=== PATIENT | female | born 1995 | race African-American/Black ===

== ENCOUNTER 2023-07-03 13:37 | Emergency (ER) | payer OTHER ==
[2023-07-03 13:48] VITALS: BP 155/90; PULSE 77; RESP 18; TEMP 98; BMI 25.7
[2023-07-03] MEDS ORDERED: IBUPROFEN 400 MG TABLET (FP) PO ONE ×2 (14:16→14:19)
== END 2023-07-03 16:22 | disposition home or self-care (01) ==
LOC: JERFT 13:37
DX: S02.2XXA Fracture of nasal bones, initial encounter for closed fracture (principal); J34.89 Other specified disorders of nose and nasal sinuses; Y04.0XXA Assault by unarmed brawl or fight, initial encounter
CPT/HCPCS: 70486-TC; 99284-25